=== PATIENT | male | born 1965 | race African-American/Black ===

== ENCOUNTER 2018-07-27 07:16 | Day surgery (SDC) | payer MEDICARE ==
[~2018-07-27] VITALS: Ht 182.9 cm; Wt 171.9 kg
--- NOTE | ~2018-07-27 | OP ---
PATIENT NAME: NAE LEE MEDICAL RECORD: [id number] LOCATION:D[facility] ADMISSION DATE: SURGEON: MILO JARVIS DO DATE OF OPERATION: 07/27/2018 PROCEDURE: Colonoscopy with polypectomy. INDICATIONS FOR PROCEDURE: Screening colonoscopy with a family history positive for colon cancer in patient's father. His last colonoscopy was approximately 2012 and he states that he had polyps removed at that time. SCOPE: Olympus video pediatric colonoscope. MEDICATIONS: Propofol 1200 mg IV per anesthesia. WITHDRAWAL TIME: 29 minutes. ESTIMATED BLOOD LOSS: Minimal. COMPLICATIONS: None. FINDINGS: Informed consent was given. The patient was made comfortable with the above medication. After reaching an adequate level of sedation by slow IV push, the patient was placed on his left side. A digital rectal examination was performed and was normal. The endoscope was then advanced under direct visualization through the rectum to the cecum, confirmed by the presence of the appendiceal orifice and ileocecal valve. The endoscope was slowly withdrawn and mucosa was carefully examined. Prep quality was good. There were 6 polyps located in today's examination. Two were located in the ascending colon. The first was a benign-appearing sessile polyp, which measured approximately 2-3 mm in diameter. It was removed using hot forceps in one piece. A second polyp was a slightly larger polyp measuring approximately 6 mm in diameter. It was benign appearing and sessile and was removed using a hot snare in one piece and completely retrieved. Four separate polyps were visualized in the transverse colon. They ranged in size from 3-5 mm in diameter. They were all benign appearing and sessile. Two of these polyps were removed using a hot snare in one piece and completely retrieved. The other 2 polyps were removed using hot forceps in one piece and completely retrieved. Retroflexion was performed in the rectum with visualization of grade I internal hemorrhoids without active bleeding. There was also mild diverticulosis involving the transverse, descending, and sigmoid colon. The endoscope was withdrawn from the patient. The patient tolerated the procedure well, and there were no complications. IMPRESSION: 1. Six polyps as described above removed using a combination of a hot snare and hot forceps. 2. Mild diverticulosis of the left side of the colon. 3. Grade I internal hemorrhoids without bleeding. PLAN AND RECOMMENDATIONS: 1. Discharge home when recovery parameters are met. 2. Follow up biopsy specimen results. 3. High fiber diet. 4. Continue current medications. 5. Recall colonoscopy in 3 years based on the number and types of polyps OPERATIVE REPORT [id number] NAE LEE removed on today's examination along with a family history of colon cancer in the patient's father. TRANSINT:[id number] Voice Confirmation ID: [id number] DOCUMENT ID: [id number] MILO JARVIS DO CC: [id number] DICTATION DATE: 07/27/18 1004 PROJECT MANAGEMENT INSTRUCTOR: 07/27/18 1056 [facility] [address] [place] [address]
[2018-07-27] MEDS ORDERED: NORCO 10-325 TA1 TAB PO (08:20)
[2018-07-27] MEDS ORDERED: KEFLEX500 MG PO (08:21)
[2018-07-27 08:35] VITALS: BP 155/99; Ht 182.9 cm; Wt 171.9 kg
== END 2018-07-27 11:30 | disposition home or self-care (01) ==
LOC: D.OPS 07:16
DX: Z12.11 Encounter for screening for malignant neoplasm of colon (principal); D12.2 Benign neoplasm of ascending colon; D12.3 Benign neoplasm of transverse colon; K57.30 Diverticulosis of large intestine without perforation or abscess without bleeding; K64.0 First degree hemorrhoids; Z80.0 Family history of malignant neoplasm of digestive organs; Z86.010 Personal history of colon polyps; Z01.812 Encounter for preprocedural laboratory examination